=== PATIENT | female | born 1955 | race Two or more races ===

== ENCOUNTER 2017-10-20 09:29 | Outpatient (CLI) | payer OTHER | END 2017-10-20 09:36 | disposition home or self-care (01) | LOC: SONOGRAMA 09:29 | DX: E04.2 Nontoxic multinodular goiter (principal) ==

== ENCOUNTER 2024-10-06 12:44 | Outpatient (CLI) | payer OTHER | END 2024-10-06 12:46 | disposition home or self-care (01) | LOC: MRI 12:44 | PROVIDERS: ATTEND Orthopaedic Surgery | DX: M25.562 Pain in left knee (principal); M25.561 Pain in right knee; M25.551 Pain in right hip; M25.552 Pain in left hip ==